=== PATIENT | male | born 1940 | race Caucasian/White ===

== ENCOUNTER 2017-09-22 01:30 | Emergency (ER) | payer MEDICARE ==
[~2017-09-22] VITALS: Ht 170.2 cm; Wt 68.0 kg
[~2017-09-22 01:30] MED LIST: DOXY100T PO; HYZA100T4 PO; LIPI10TA PO; METF500 PO; NEXI20CA PO
[2017-09-22 01:37] VITALS: BP 224/98; PULSE 79; RESP 18; TEMP 98.2; O2SAT 99
[2017-09-22 01:50] VITALS: BP 211/100; PULSE 78; RESP 16
[2017-09-22] MEDS ORDERED: LIPI10TA PO (02:07)
[2017-09-22] MEDS ORDERED: METF1000 PO (02:07)
[2017-09-22] MEDS ORDERED: FERR15DR9 (02:07)
[2017-09-22] MEDS ORDERED: FURO1TAB62 PO (02:07)
[2017-09-22] MEDS ORDERED: TAMS5CAP PO (02:07)
[2017-09-22] MEDS ORDERED: PREV30CA36 PO (02:07)
[2017-09-22 02:44] LABS: AUTOMATED NEUTROPHIL # 3.2 TH/MM3 (1.8-7.7); BASOPHIL % 0.4 % (0.0-2.0); EOSINOPHIL # 0.1 TH/MM3 (0-0.4); EOSINOPHIL % 1.8 % (0.0-4.0); HEMATOCRIT 31.1 % (39.0-51.0); HEMOGLOBIN 10.1 GM/DL (13.0-17.0); LYMPH % 31.7 % (9.0-44.0); LYMPHOCYTE # 1.9 TH/MM3 (1.0-4.8); MEAN CELL VOLUME 81.2 FL (80.0-100.0); MEAN CORPUSCULAR HEMOGLOBIN 26.3 PG (27.0-34.0); MEAN CORPUSCULAR HGB CONC 32.3 % (32.0-36.0); MEAN PLATELET VOLUME 7.8 FL (7.0-11.0); MONOCYTE # 0.8 TH/MM3 (0-0.9); NEUT % 53.1 % (16.0-70.0); PLATELET COUNT 343 TH/MM3 (150-450); RED BLOOD COUNT 3.83 MIL/MM3 (4.50-5.90); RED CELL DISTRIBUTION WIDTH 16.5 % (11.6-17.2)
[2017-09-22 02:54] VITALS: BP 206/90; PULSE 74; RESP 16; O2SAT 99
[2017-09-22 02:54] LABS: CHLORIDE 105 MEQ/L (98-107); SODIUM (NA) 140 MEQ/L (136-145)
[2017-09-22 02:57] LABS: ALBUMIN 3.5 GM/DL (3.4-5.0); BICARBONATE 26.9 MEQ/L (21.0-32.0); CALCIUM 8.6 MG/DL (8.5-10.1); GLUCOSE,RANDOM 104 MG/DL (74-106)
[2017-09-22 02:58] LABS: BLOOD UREA NITROGEN 15 MG/DL (7-18)
[2017-09-22 03:00] LABS: ALT (GPT) 16 U/L (12-78); AST (GOT) 16 U/L (15-37); GLOMERULAR FILTRATION RATE 59 ML/MIN (>89)
[2017-09-22 03:02] LABS: TOTAL BILIRUBIN ADULT 0.2 MG/DL (0.2-1.0); TOTAL PROTEIN 7.4 GM/DL (6.4-8.2)
[2017-09-22 03:03] LABS: ALKALINE PHOSPHATASE 92 U/L (45-117)
--- NOTE | 2017-09-22 04:01 | RADRPT ---
EXAM DATE/TIME: 09/22/2017 03:26 [facility] COMPARISON: No previous studies available for comparison. INDICATIONS : Chest and abdominal pain. MEDICAL HISTORY : None. SURGICAL HISTORY : CABG. ENCOUNTER: Initial ACUITY: 1 day PAIN SCORE: 8/10 LOCATION: Bilateral lower chest FINDINGS: Median sternotomy with postsurgical features of prior aortic valve replacement. No focal pleural or p arenchymal opacities. Cardiomediastinal contours within normal limits. Remainder of the exam is uncha nged. CONCLUSION: 1. Postsurgical features. 2. No acute cardiopulmonary disease. Wicho Lowe MD on September 22, 2017 at 3:59 Board Certified Radiologist. This report was verified electronically.
[2017-09-22] MEDS ORDERED: SODIUM CHLOR 0.9% 1000 ML INJ 1,000 ML IV SCH (05:30)
[2017-09-22] MEDS ORDERED: IOHEXOL 350 MG/ML 10 ML VIAL (for RAD DIAG) IVCONTRAST ONE (05:36)
--- NOTE | 2017-09-22 05:59 | RADRPT ---
EXAM DATE/TIME: 09/22/2017 05:19 [facility] COMPARISON: No previous studies available for comparison. INDICATIONS : Lower abdominal pain. Evaluate for diverticulitis. IV CONTRAST: 100 cc Omnipaque 350 (iohexol) IV ORAL CONTRAST: No oral contrast ingested. RADIATION DOSE: 7.95 CTDIvol (mGy) MEDICAL HISTORY : Hypertension. Gastroesophageal reflux disease. Diabetes mellitus type 2. SURGICAL HISTORY : Appendectomy. ENCOUNTER: Initial ACUITY: 1 day PAIN SCALE: 5/10 LOCATION: Left lower quadrant TECHNIQUE: Volumetric scanning of the abdomen and pelvis was performed. Using automated exposure control and ad justment of the mA and/or kV according to patient size, radiation dose was kept as low as reasonably achievable to obtain optimal diagnostic quality images. DICOM format image data is available electro nically for review and comparison. FINDINGS: LOWER LUNGS: Small left pleural effusion. LIVER: Homogeneous density without lesion. There is no dilation of the biliary tree. No calcified gallston es. SPLEEN: Normal size without lesion. PANCREAS: Within normal limits. KIDNEYS: Small atrophic left kidney. Right kidney demonstrates uniform enhancement without hydronephrosis or r adiopaque renal calculi. ADRENAL GLANDS: Within normal limits. VASCULAR: There is no aortic aneurysm. BOWEL/MESENTERY: The stomach, small bowel, and colon demonstrate no acute abnormality. Mild sigmoid diverticulosis wi thout significant inflammatory change to suggest diverticulitis. There is no free intraperitoneal air or fluid. ABDOMINAL WALL: Within normal limits. RETROPERITONEUM: There is no lymphadenopathy. BLADDER: No wall thickening or mass. REPRODUCTIVE: Within normal limits. INGUINAL: There is no lymphadenopathy or hernia. MUSCULOSKELETAL: Mild degenerative spondylosis of the lower lumbar spine. No abnormal lytic or blastic bony lesions. CONCLUSION: 1. Mild sigmoid diverticulosis without significant inflammatory change to suggest diverticulitis as q uestioned. 2. No acute abnormality in the abdomen or pelvis. 3. Atrophic left kidney. 4. Small left pleural effusion. Wicho Lowe MD on September 22, 2017 at 5:55 Board Certified Radiologist. This report was verified electronically.
[2017-09-22 06:01] LABS: BILIRUBIN, URINE NEG (NEG); BLOOD, URINE TRACE (NEG); GLUCOSE,URINE NEG (NEG); KETONE, URINE NEG (NEG); NITRITE,URINE NEG (NEG); URINE LEUKOCYTE ESTERASE SMALL (NEG)
[2017-09-22 06:10] LABS: URINE COLOR YELLOW (YELLW/STRAW)
[2017-09-22 06:11] LABS: BACTERIA, URINE MOD /hpf; SQUAMOUS EPITHELIAL CELL URINE 0-5 /hpf (0-5)
[2017-09-22 06:12] LABS: RBC, URINE 0-3 /hpf (0-3)
[2017-09-22] MEDS ORDERED: METO25TA3 PO (06:12)
[2017-09-22] MEDS ORDERED: CIPR-9 PO (06:23)
[2017-09-22] MEDS ORDERED: PROC10TA PO (06:25)
[2017-09-22] MEDS ORDERED: TRAM50TA PO (06:25)
--- NOTE | 2017-09-22 06:26 | PD ---
HPI Chief Complaint: GI Complaint Time Seen by Provider: 04:28 Travel History International Travel<30 days: No Contact w/Intl Traveler<30days: No Traveled to known affect area: No History of Present Illness HPI The patient is a 77-year-old male that complains of left lower quadrant abdominal pain for 5 days. He had one episode of diarrhea. He states he has not had a bowel movement for 6 days. He denies any nausea or vomiting. He denies any fever. He does have a possible history of congestive heart failure. He thinks he might of had diverticulitis in the past. His pain is a 5/10 and a crampy pain. PFSH Past Medical History Cardiovascular Problems: Yes High Cholesterol: Yes Diabetes: Yes Patient Takes Glucophage: Yes Gastrointestinal Disorders: Yes (GIB) GERD: Yes Hypertension: Yes ?: Not Past Surgical History Appendectomy: Yes Cardiac Surgery: Yes (08/12) Genitourinary Surgery: Yes (TURP) Other Surgery: Yes (Achilles tendon) Social History Alcohol Use: Yes (Rarely) Tobacco Use: No Substance Use: No Allergies-Medications (Allergen,Severity, Reaction): Coded Allergies: No Known Allergies (Unverified Allergy, Unknown, 09/22/17) Reported Meds & Prescriptions Reported Meds & Active Scripts Active Reported Lasix (Furosemide) 20 Mg Tab 20 Mg PO DAILY Ferrous Sulfate 12.5 Mg Iron (62.25 Mg)/0.83 Ml Syringe Prevacid (Lansoprazole) 30 Mg Capdr 30 Mg PO DAILY Flomax (Tamsulosin HCl) 0.4 Mg Cap 0.4 Mg PO HS Metformin (Metformin HCl) 1,000 Mg Tab 1,000 Mg PO BIDPC Lipitor (Atorvastatin Calcium) 10 Mg Tab 10 Mg PO HS Review of Systems Except as stated in HPI: all other systems reviewed are Neg Physical Exam Narrative GENERAL: The patient is alert, oriented 3 in slight apparent distress with his left lower quadrant abdominal discomfort. His vital signs show blood pressure 211/100 but the rest of the vital signs are normal. SKIN: Focused skin assessment warm/dry. HEAD: Atraumatic. Normocephalic. EYES: Pupils equal and round. No scleral icterus. No injection or drainage. ENT: No nasal bleeding or discharge. Mucous membranes pink and moist. NECK: Trachea midline. No JVD. CARDIOVASCULAR: Regular rate and rhythm. No murmur appreciated. RESPIRATORY: No accessory muscle use. Clear to auscultation. Breath sounds equal bilaterally. GASTROINTESTINAL: Abdomen soft, with tenderness to direct palpation in the left lower quadrant, nondistended. Hepatic and splenic margins not palpable. No guarding or rebound is present. MUSCULOSKELETAL: No obvious deformities. No clubbing. No cyanosis. No edema. NEUROLOGICAL: Awake and alert. No obvious cranial nerve deficits. Motor grossly within normal limits. Normal speech. PSYCHIATRIC: Appropriate mood and affect; insight and judgment normal. RECTAL EXAM: No masses or tenderness, stool is brown and guaiac negative. No impaction is noted in the rectum. Data Data Last Documented VS Vital Signs Date Time Temp Pulse Resp B/P (MAP) Pulse Ox O2 Delivery O2 Flow Rate FiO2 09/22/17 02:54 74 16 206/90 (128) 99 Room Air 09/22/17 01:37 98.2 Orders Orders Complete Blood Count With Diff (09/22/17 01:43) Comprehensive Metabolic Panel (09/22/17 01:43) Urinalysis - C+S If Indicated (09/22/17 01:43) Iv Access Insert/Monitor (09/22/17 01:43) Oximetry (09/22/17 01:43) Lipase (09/22/17 01:43) B-Type Natriuretic Peptide (09/22/17 02:38) Chest, Pa & Lat (09/22/17 ) Ct Abd/Pel W Iv Contrast(Rout) (09/22/17 04:28) Iohexol 350 Inj (Omnipaque 350 Inj) (09/22/17 05:36) Labs Laboratory Tests Test 09/22/17 02:30 09/22/17 05:30 White Blood Count 6.0 TH/MM3 Red Blood Count 3.83 MIL/MM3 Hemoglobin 10.1 GM/DL Hematocrit 31.1 % Mean Corpuscular Volume 81.2 FL Mean Corpuscular Hemoglobin 26.3 PG Mean Corpuscular Hemoglobin Concent 32.3 % Red Cell Distribution Width 16.5 % Platelet Count 343 TH/MM3 Mean Platelet Volume 7.8 FL Neutrophils (%) (Auto) 53.1 % Lymphocytes (%) (Auto) 31.7 % Monocytes (%) (Auto) 13.0 % Eosinophils (%) (Auto) 1.8 % Basophils (%) (Auto) 0.4 % Neutrophils # (Auto) 3.2 TH/MM3 Lymphocytes # (Auto) 1.9 TH/MM3 Monocytes # (Auto) 0.8 TH/MM3 Eosinophils # (Auto) 0.1 TH/MM3 Basophils # (Auto) 0.0 TH/MM3 CBC Comment DIFF FINAL Differential Comment Blood Urea Nitrogen 15 MG/DL Creatinine 1.20 MG/DL Random Glucose 104 MG/DL Total Protein 7.4 GM/DL Albumin 3.5 GM/DL Calcium Level 8.6 MG/DL Alkaline Phosphatase 92 U/L Aspartate Amino Transf (AST/SGOT) 16 U/L Alanine Aminotransferase (ALT/SGPT) 16 U/L Total Bilirubin 0.2 MG/DL Sodium Level 140 MEQ/L Potassium Level 4.1 MEQ/L Chloride Level 105 MEQ/L Carbon Dioxide Level 26.9 MEQ/L Anion Gap 8 MEQ/L Estimat Glomerular Filtration Rate 59 ML/MIN B-Type Natriuretic Peptide 172 PG/ML Lipase 201 U/L MDM Medical Decision Making Medical Screen Exam Complete: Yes Emergency Medical Condition: Yes Medical Record Reviewed: Yes Interpretation(s) The CBC is normal except for hemoglobin of 10.1 and hematocrit of 31.1. The chest x-ray shows no acute cardiopulmonary disease. It does show also prior aortic valve replacement. The complete metabolic profile shows a GFR of 59 but is otherwise normal. The lipase is normal. The BNP is 172. The CT abdomen/ pelvis with IV contrast shows mild sigmoid diverticulosis without any significant inflammatory change to suggest diverticulitis. It does show no acute abnormality in the abdomen or pelvis and an atrophic left kidney. There is a small left pleural effusion. The urine shows yellow color, slight turbidity, specific gravity 1.007, trace occult blood and small leukocyte Estrace with 9-14 white cells and moderate bacteria and culture is indicated. Differential Diagnosis Urinary tract infection, fecal impaction, colitis, diverticulitis, urinary stone , electrolyte imbalance, anemia, pancreatitis-unlikely Narrative Course The patient has a urinary tract infection. He describes pain around his left kidney as well as the left and right side of the bladder. He likely has a pyelonephritis. He will be given Cipro, 500 mg twice daily for 10 days. He should increase his liquid intake. He should follow-up with his primary care physician. The patient also has an elevated blood pressure here which apparently is asymptomatic. Diagnosis Primary Impression: Pyelonephritis Additional Impression: Elevated blood pressure reading Additional Instructions: The antibiotic is taken 1 tablet twice daily for 10 days. Follow-up with your primary care physician who will recheck your blood pressure as well as check your urinary infection. Do not drink alcohol or drive on the tramadol or the Compazine. Med/Other Pt SpecificInfo: Prescription(s) given Scripts Prochlorperazine Maleate (Prochlorperazine Maleate) 10 Mg Tab 10 MG PO Q6H Y for NAUSEA OR VOMITING, #30 TAB 0 Refills Prov: Dave Roca MD 09/22/17 Tramadol (Tramadol) 50 Mg Tab 50 MG PO Q4H Y for PAIN, #30 TAB 0 Refills Prov: Dave Roca MD 09/22/17 Ciprofloxacin (Cipro) 500 Mg Tab 500 MG PO BID for Infection for 10 Days, #20 TAB 0 Refills Prov: Dave Roca MD 09/22/17 Disposition: 01 DISCHARGE HOME Condition: Stable Dave Roca MD Sep 22, 2017 06:26
[2017-09-22] MEDS ORDERED: cefTRIAXone INJ 1,000 MG in SODIUM CHLORIDE 0.9% INJ 100 ML IV ONE (06:30)
[2017-09-22] MEDS ORDERED: KETOROLAC TROMETHAMINE 60 MG/2 ML (IM) VIAL IVP ONE (06:30)
[2017-09-22 06:47] VITALS: BP 208/91; PULSE 87; RESP 16; O2SAT 99
[2017-09-22 07:26] VITALS: BP 180/99; PULSE 71; RESP 16; O2SAT 98
== END 2017-09-22 08:00 | disposition home or self-care (01) ==
LOC: PHED 01:30
DX: N12 Tubulo-interstitial nephritis, not specified as acute or chronic (principal); B96.1 Klebsiella pneumoniae [K. pneumoniae] as the cause of diseases classified elsewhere; I10 Essential (primary) hypertension; E78.00 Pure hypercholesterolemia, unspecified; E11.9 Type 2 diabetes mellitus without complications; K21.9 Gastro-esophageal reflux disease without esophagitis; Z95.1 Presence of aortocoronary bypass graft; Z79.84 Long term (current) use of oral hypoglycemic drugs; Z79.899 Other long term (current) drug therapy
CPT/HCPCS: 71046; 74177; 80053; 81001; 83690; 83880; 85025; 87077; 87086; 87186; 96365; 96375; 99285; J0696; J1885; Q9967